=== PATIENT | female | born 2000 | race Two or more races ===

== ENCOUNTER 2024-12-08 23:58 | Emergency (ER) | payer OTHER ==
[~2024-12-08] VITALS: Ht 162.6 cm; Wt 93.4 kg
[2024-12-09 00:27] VITALS: BP 145/75; O2SAT 100
[2024-12-09] MEDS ORDERED: PRENATE ELITE1 EAC2 PO (00:27)
[2024-12-09 04:39] LABS: BASO % 0.3 % (0.1-1.2); EOS # 0.09 (0.04-0.54); EOS % 0.8 % (0.7-7.0); LYMPH # 2.02 (1.18-3.74); LYMPH % 18.7 % (19.3-53.1); MEAN PLATELET VOLUME 10.60 fl (9.4-12.4); MONO # 0.91 (0.24-0.82); MONO % 8.4 % (4.7-12.5); NEUT # 7.75 (1.56-6.13); NEUT % 71.5 % (34.0-71.1); RED CELL DISTRIBUTION WIDTH 14.0 % (11.6-14.4)
[2024-12-09 05:27] LABS: COVID-19 AG NEGATIVE (NEGATIVE)
== END 2024-12-09 05:36 | disposition home or self-care (01) ==
LOC: ER 23:58
DX: O26.899 Other specified pregnancy related conditions, unspecified trimester (principal); J02.8 Acute pharyngitis due to other specified organisms; B97.89 Other viral agents as the cause of diseases classified elsewhere; Z3A.00 Weeks of gestation of pregnancy not specified; Z91.013 Allergy to seafood; Z20.822 Contact with and (suspected) exposure to COVID-19